=== PATIENT | female | born 1975 | race American Indian/Alaskan Native ===

== ENCOUNTER 2017-05-15 20:20 | Emergency (ER) | payer SELFPAY ==
[2017-05-15 20:35] VITALS: BP 124/83
== END 2017-05-16 05:50 | disposition left against medical advice (07) ==
LOC: ED 20:20
DX: M54.5 Low back pain (principal); M79.1 Myalgia; Z53.21 Procedure and treatment not carried out due to patient leaving prior to being seen by health care provider

== ENCOUNTER 2019-04-19 23:04 | Emergency (ER) | payer OTHER ==
[2019-04-19 23:16] VITALS: BP 97/58
--- NOTE | 2019-04-20 00:15 | XRay Report ---
PROCEDURE: XR SPINE LUMBOSACRAL 2-3V TECHNIQUE: Lumbar spine radiographs, AP, lateral and spot views. HISTORY: slip and fall COMPARISONS: None . FINDINGS: Alignment: Normal . Vertebral body heights/Disk spaces: Mild loss of disc space height at the L4-5 and L5-S1 levels. Sli ght spur formation off the osseous structures. . Fracture(s): None . Facets: Normal . Bone mineralization: Normal . IMPRESSION: There is no evidence of an acute fracture. Mild lumbar spondylosis . This document is electronically signed by Pauly Ponce DO., Apr 20 2019 12:13:38 AM ET
[2019-04-20] MEDS ORDERED: NORCO 5/325 PO STA (02:08)
--- NOTE | 2019-04-20 03:10 | Emergency Department Report ---
ED Back Pain/Injury HPI - General Chief Complaint: Back Pain/Injury Stated Complaint: SLIP AND FALL,BACK PAIN, RT LEG PAIN Time Seen by Provider: 04/20/19 02:06 Source: patient Limitations: No Limitations - History of Present Illness Initial Comments: 43-year-old Afro-[place] female system was department complaining of low back pain after slipping and falling on the floor in the house. She was walking on a hold for didn't see the water was she slipped and fallen backwards landing onto her back causing the problem pain to the right side of her back and occasional shooting pains down her right leg. She reports no loss of bowel or bladder, no saddle paresthesia. She reports no hematuria. No neck consciousness MD Complaint: back pain - Related Data Previous Rx's Medication Instructions Recorded Last Taken Type Ketorolac [Toradol] 10 mg PO Q6H PRN #15 tablet 04/20/19 Unknown Rx methOCARBAMOL [Robaxin] 750 mg PO Q8H PRN #21 tablet 04/20/19 Unknown Rx Allergies Allergy/AdvReac Type Severity Reaction Status Date / Time No Known Allergies Allergy Unverified 05/15/17 20:35 ED Review of Systems ROS: Stated complaint: SLIP AND FALL,BACK PAIN, RT LEG PAIN Other details as noted in HPI Constitutional: denies: chills, fever Eyes: denies: eye pain, eye discharge, vision change ENT: denies: ear pain, throat pain Respiratory: denies: cough, shortness of breath, wheezing Cardiovascular: denies: chest pain, palpitations Endocrine: no symptoms reported Gastrointestinal: denies: abdominal pain, nausea, diarrhea Genitourinary: denies: urgency, dysuria, discharge Musculoskeletal: back pain. denies: joint swelling, arthralgia Skin: denies: rash, lesions Neurological: denies: headache, weakness, paresthesias Psychiatric: denies: anxiety, depression Hematological/Lymphatic: denies: easy bleeding, easy bruising ED Past Medical Hx - Past Medical History Previous Medical History?: No - Surgical History Past Surgical History?: Yes Additional Surgical History: ectopic - Social History Smoking Status: Current Every Day Smoker Substance Use Type: None - Medications Home Medications: Home Medications Medication Instructions Recorded Confirmed Last Taken Type Ketorolac [Toradol] 10 mg PO Q6H PRN #15 tablet 04/20/19 Unknown Rx methOCARBAMOL [Robaxin] 750 mg PO Q8H PRN #21 tablet 04/20/19 Unknown Rx ED Physical Exam - General Limitations: No Limitations General appearance: alert, in no apparent distress - Head Head exam: Present: atraumatic, normocephalic - Eye Eye exam: Present: normal appearance, PERRL, EOMI Pupils: Present: normal accommodation - ENT ENT exam: Present: normal exam, normal orophraynx, mucous membranes moist, TM's normal bilaterally - Neck Neck exam: Present: normal inspection, full ROM - Respiratory Respiratory exam: Present: normal lung sounds bilaterally. Absent: respiratory distress, wheezes, rales, chest wall tenderness, accessory muscle use - Cardiovascular Cardiovascular Exam: Present: regular rate, normal rhythm. Absent: systolic murmur, diastolic murmur, rubs, gallop - GI/Abdominal GI/Abdominal exam: Present: soft, normal bowel sounds - Extremities Exam Extremities exam: Present: normal inspection - Back Exam Back exam: Present: normal inspection - Neurological Exam Neurological exam: Present: alert, oriented X3 - Psychiatric Psychiatric exam: Present: normal affect, normal mood - Skin Skin exam: Present: warm, dry, intact, normal color. Absent: rash ED Course Vital Signs 04/19/19 23:08 Temperature 98.0 F Pulse Rate 71 Respiratory 18 Rate Blood Pressure 97/58 O2 Sat by Pulse 100 Oximetry Critical care attestation.: If time is entered above; I have spent that time in minutes in the direct care of this critically ill patient, excluding procedure time. ED Disposition Clinical Impression: Lower back pain Disposition: DC-01 TO HOME OR SELFCARE Is pt being admited?: No Does the pt Need Aspirin: No Condition: Stable Instructions: Low Back Strain (ED), Back Pain (ED) Prescriptions: methOCARBAMOL [Robaxin] 750 mg PO Q8H PRN #21 tablet PRN Reason: Spasms Ketorolac [Toradol] 10 mg PO Q6H PRN #15 tablet PRN Reason: Pain Referrals: MICK SOLORZANO MD [Primary Care Provider] - 3-5 Days
== END 2019-04-20 04:05 | disposition home or self-care (01) ==
LOC: ED 23:04
DX: M54.5 Low back pain (principal); F17.200 Nicotine dependence, unspecified, uncomplicated
CPT/HCPCS: 72100

== ENCOUNTER 2020-11-05 08:42 | Observation (INO) | payer OTHER ==
[2020-11-05 09:38] LABS: Basophils # (Auto) 0.1 K/mm3 (0.0-0.1); Basophils % (Auto) 0.8 % (0.0-1.8); Eosinophils # (Auto) 0.1 K/mm3 (0.0-0.4); Eosinophils % (Auto) 1.6 % (0.0-4.3); Hemoglobin 13.6 gm/dl (10.1-14.3); Lymphocytes # (Auto) 0.8 K/mm3 (1.2-5.4); Lymphocytes % (Auto) 9.6 % (13.4-35.0); Mean Corpuscular HGB Conc 34 % (30-34); Mean Corpuscular Volume 94 fl (79-97); Monocytes # (Auto) 0.4 K/mm3 (0.0-0.8); Monocytes % (Auto) 4.6 % (0.0-7.3); Platelet Count 206 K/mm3 (140-440); Red Blood Count 4.28 M/mm3 (3.65-5.03); Red Cell Distribution Width 13.8 % (13.2-15.2)
[2020-11-05] MEDS ORDERED: ONDANSETRON 4 MG/2 ML INJ IV ONE (09:43)
[2020-11-05] MEDS ORDERED: MORPHINE 4 MG/1 ML INJ IV ONE ×2 (09:43→10:51)
--- NOTE | 2020-11-05 09:45 | Emergency Department Report ---
ED Abdominal Pain HPI - General Chief Complaint: Abdominal Pain Stated Complaint: VOMITING,ABDOMINAL PAIN Time Seen by Provider: 11/05/20 09:30 Source: patient Mode of arrival: Ambulatory Limitations: No Limitations - History of Present Illness Initial Comments: 45-year-old female presents to the ER today complaint of epigastric pain. Patient states that her pain started last night. She describes a constant sharp pain that radiates into her back. Patient states that she is concerned that may be related to her gallstones. She states that she was diagnosed with gallstones about 2 years ago but never had it removed due to lack of insurance. She states that she has not had any issues with it until last night. She did admit that she had fried pork chops prior to the onset of the pain. She reports nausea and she did vomit once since the pain started last night. He states she is afraid to eat because that might worsen her pain. She denies any fever, chills, bowel changes, chest pain or shortness of breath or any other symptoms at this time. MD Complaint: abdominal pain -: Sudden Location: epigastric Radiation: back Migration to: no migration Severity scale (0 -10): 10 Quality: sharp Consistency: constant Improves With: nothing Worsens With: eating Associated Symptoms: nausea, vomiting - Related Data Previous Rx's Medication Instructions Recorded Last Taken Type Ketorolac [Toradol] 10 mg PO Q6H PRN #15 tablet 04/20/19 Unknown Rx methOCARBAMOL [Robaxin] 750 mg PO Q8H PRN #21 tablet 04/20/19 Unknown Rx Allergies Allergy/AdvReac Type Severity Reaction Status Date / Time No Known Allergies Allergy Unverified 05/15/17 20:35 ED Review of Systems ROS: Stated complaint: VOMITING,ABDOMINAL PAIN Other details as noted in HPI Constitutional: denies: chills, fever Respiratory: denies: cough, shortness of breath, wheezing Cardiovascular: denies: chest pain, palpitations Gastrointestinal: abdominal pain, nausea, vomiting. denies: diarrhea, constipation, hematemesis, melena, hematochezia Genitourinary: denies: urgency, dysuria, discharge Musculoskeletal: denies: back pain, joint swelling, arthralgia Skin: denies: rash, lesions Neurological: denies: headache, weakness, paresthesias ED Past Medical Hx - Past Medical History Previous Medical History?: No - Surgical History Past Surgical History?: Yes Additional Surgical History: ectopic - Social History Smoking Status: Never Smoker Substance Use Type: None - Medications Home Medications: Home Medications Medication Instructions Recorded Confirmed Last Taken Type Ketorolac [Toradol] 10 mg PO Q6H PRN #15 tablet 04/20/19 Unknown Rx methOCARBAMOL [Robaxin] 750 mg PO Q8H PRN #21 tablet 04/20/19 Unknown Rx ED Physical Exam - General Limitations: No Limitations General appearance: alert, anxious, in distress (Moderate pain distress), other (Patient is tearful) - Head Head exam: Present: atraumatic, normocephalic, normal inspection - Respiratory Respiratory exam: Present: normal lung sounds bilaterally. Absent: respiratory distress - Cardiovascular Cardiovascular Exam: Present: regular rate, normal rhythm, normal heart sounds - GI/Abdominal GI/Abdominal exam: Present: soft, tenderness (Moderate epigastric tenderness with some mild guarding). Absent: distended, rebound, rigid - Neurological Exam Neurological exam: Present: alert, oriented X3, CN II-XII intact, normal gait - Psychiatric Psychiatric exam: Present: normal affect, anxious - Skin Skin exam: Present: intact ED Course Vital Signs 11/05/20 11/05/20 11/05/20 11:10 11:12 12:55 Temperature 98.9 F Pulse Rate 86 Respiratory 22 22 18 Rate Blood Pressure 136/90 [Left] O2 Sat by Pulse 99 Oximetry 11/05/20 14:07 Temperature Pulse Rate Respiratory 18 Rate Blood Pressure [Left] O2 Sat by Pulse 98 Oximetry ED Medical Decision Making - Lab Data Result diagrams: 11/05/20 09:25 11/05/20 09:25 - EKG Data -: EKG Interpreted by Al EKG shows normal: sinus rhythm - EKG Data Interpretation: other (No STEMI or ischemic changes, significant dysrhythmia) - Radiology Data Findings [facility] [address] [place] [address] Ultrasound Report Signed Patient: EVAN SCHROEDER MR# : [id number] : 1975 Acct:[id number] Age/Sex: 45 / F ADM Date: 11/05/20 Loc: ED Attending Dr: Ordering Physician: AN BROWN Date of Service: 11/05/20 Procedure(s): US abdomen limited Accession Number(s): [id number] cc: AN BROWN US abdomen limited INDICATION / CLINICAL INFORMATION: Epigastric pain, history of gallstones. COMPARISON: None available. FINDINGS: Hepatic echogenicity is heterogeneous, suggesting fatty infiltration and possibly early cirrhosis. Gallbladder contains numerous stones, and the stage builder indicates a positive Rg's sign. Common duct is slightly dilated, measuring 9.3 cm. I do not see significant intrahepatic biliary dilatation. Pancreas and abdominal aorta are unremarkable. IMPRESSION: 1. Cholelithiasis. Positive Rg's sign suggests cholecystitis. 2. Inhomogeneous hepatic echogenicity, suggesting fatty infiltration and possibly cirrhosis. 3. Extrahepatic common duct is slightly dilated, but I do not see significant intrahepatic biliary dilatation. Signer Name: Ian Llamas MD Signed: 11/05/2020 10:38 AM Workstation Name: [id number] Transcribed By: TM Dictated By: Ian Llamas MD Electronically Authenticated By: Ian Llamas MD Signed Date/Time: 11/05/20 1038 DD/ 1035 TD/TT: - Medical Decision Making 1247 -- Patient reports some improvement of her pain after second round of morphine. She states her pain is 8/10 after 8mg IV morphine. Review case, labs and CT with attending. Consulted general surgeon Dr Davial, given US/CT findings and patient persistent pain, he recommend admitting to hospitalist and he will consult. Zosyn IV started per surgery consult. 1251 -- Discussed case with Hospitalist. He has agreed to admit Discussed lab/ct/US findings with patient. Discussed plan for admission with patient. She expressed understanding and agreed with plan. Critical care attestation.: If time is entered above; I have spent that time in minutes in the direct care of this critically ill patient, excluding procedure time. ED Disposition Clinical Impression: Gallstone, Cholecystitis Disposition: - OP ADMIT IP TO THIS HOSP Is pt being admited?: Yes Does the pt Need Aspirin: No Condition: Stable
[2020-11-05 10:01] LABS: Alanine Aminotransferase 7 units/L (7-56); Albumin 3.5 g/dL (3.9-5); Blood Urea Nitrogen 5 mg/dL (7-17); Calcium 9.4 mg/dL (8.4-10.2); Hemolysis Index 7
[2020-11-05 10:06] LABS: BUN/Creatinine Ratio 7
[2020-11-05 10:11] LABS: Bilirubin,Urine NEG (Negative); Blood,Urine MOD (Negative); Color,Urine Straw (Yellow); Mucus,Urine FEW /HPF; Protein,Urine <15 mg/dL mg/dL (Negative); Urobilinogen,Urine < 2.0 mg/dL (<2.0); WBC,Urine < 1.0 /HPF (0.0-6.0)
--- NOTE | 2020-11-05 10:43 | Ultrasound Report ---
US abdomen limited INDICATION / CLINICAL INFORMATION: Epigastric pain, history of gallstones. COMPARISON: None available. FINDINGS: Hepatic echogenicity is heterogeneous, suggesting fatty infiltration and possibly early cirrhosis. Ga llbladder contains numerous stones, and the operator technician indicates a positive Rg's sign. Common du ct is slightly dilated, measuring 9.3 cm. I do not see significant intrahepatic biliary dilatation. Pancreas and abdominal aorta are unremarkable. IMPRESSION: 1. Cholelithiasis. Positive Rg's sign suggests cholecystitis. 2. Inhomogeneous hepatic echogenicity, suggesting fatty infiltration and possibly cirrhosis. 3. Extrahepatic common duct is slightly dilated, but I do not see significant intrahepatic biliary di latation. Signer Name: Ian Llamas MD Signed: 11/05/2020 10:38 AM Workstation Name: [id number]
[2020-11-05] MEDS ORDERED: FAMOTIDINE 20 MG/2 ML INJ IV ONE (10:51)
[2020-11-05] MEDS ORDERED: KETOROLAC 30 MG/1 ML INJ IV ONE (10:54)
--- NOTE | 2020-11-05 12:27 | Cat Scan Report ---
CT ABDOMEN AND PELVIS WITH IV CONTRAST INDICATION: Severe epigastric and right upper quadrant pain. COMPARISON: Right upper quadrant ultrasound earlier today. TECHNIQUE: All CT scans at this facility use dose modulation, automated exposure control, iterative reconstructi on or weight based dosing, when appropriate, to reduce radiation dose to as low as reasonably achieva ble. FINDINGS: Lung Bases: No significant abnormality. Skeletal System: No acute abnormality. ABDOMEN: Liver: There are mild steatosis. Gallbladder: Gallbladder is distended with punctate stones. Bile Ducts: There is mild intrahepatic and common bile duct dilatation. Pancreas: There is mild pancreatic duct dilatation. There appears to be a patent accessory duct of Sa ntorini. Pancreatic parenchyma is unremarkable. Spleen: No significant abnormality. Adrenals: No significant abnormality. Right Kidney: No significant abnormality. Left Kidney: No significant abnormality. Upper GI tract: No significant abnormality. Lymph Nodes: No significant adenopathy. Aorta: No significant abnormality. Additional Findings: No significant abnormality. PELVIS: Colon: No acute abnormality. Urinary Bladder and Distal Ureters: No significant abnormality. Appendix: No significant abnormality. Lymph Nodes: No significant adenopathy. Additional Findings: Trace free fluid in the cul-de-sac may be physiologic. Right ovarian cysts are n oted. IMPRESSION: 1. Gallbladder is distended with punctate stones. No gallbladder wall thickening or pericholecystic fluid. Given this and the ultrasound findings, acute cholecystitis should be considered. There is mil d biliary dilatation. 2. There appears to be a patent accessory duct of Santorini at the pancreas. No CT evidence of acute pancreatitis. Signer Name: Aditya Long MD Signed: 11/05/2020 12:23 PM Workstation Name: [id number]
[2020-11-05] MEDS ORDERED: PIPERACILLIN/TAZOBACTAM 3.375 3.375 GM/50 ML BAG IV ONE (12:50)
--- NOTE | 2020-11-05 12:53 | History and Physical Report ---
History of Present Illness Chief complaint: My stomach hurts History of present illness: 45 YO Female with Cholelithiasis presents to ED for evaluation. Patient states that she has experienced abdominal pain over the past 2 days with worsening symptoms over the past 10 hours. Patient states that her pain is 10/10, was initially intermittent but has become constant, sharp, epigastric in location, nonradiating, associated with nausea, associated with multiple episodes of vomiting, worsened with eating, relieved with abstinence from ingestion of food. Patient transported to [facility] via private vehicle for further care and evaluation of the aforementioned symptoms. Patient seen and evaluated in the emergency department. All lab and imaging studies reviewed. Patient underwent CT scan of the abdomen and pelvis which revealed acute cholecystitis. Surgery team consulted in ED. Patient placed in observation status and admitted to surgical floor. Patient treated with bowel rest, IV fluid resuscitation therapy, and pain control. Patient is pending surgical intervention. Patient denies fever, chills, chest pain, palpitations, productive cough, skin rash, recent ill contacts, or known exposure to COVID-19. No prior admission for review. All medication listed at time of admission has been reconciled. Past History Past Medical History: other (See HPI) Past Surgical History: bowel surgery Social history: , lives with family. denies: smoking, alcohol abuse, prescription drug abuse Family history: no significant family history (Reviewed) Medications and Allergies Allergies Allergy/AdvReac Type Severity Reaction Status Date / Time No Known Allergies Allergy Unverified 05/15/17 20:35 Home Medications Medication Instructions Recorded Confirmed Last Taken Type Ketorolac [Toradol] 10 mg PO Q6H PRN #15 tablet 04/20/19 Unknown Rx methOCARBAMOL [Robaxin] 750 mg PO Q8H PRN #21 tablet 04/20/19 Unknown Rx Active Meds: Active Medications Piperacillin Sod/Tazobactam Sod (Zosyn/Ns 3.375gm/50ml) 3.375 gm in 50 mls @ 100 mls/hr IV ONCE ONE; Protocol Stop: 11/05/20 13:19 Review of Systems Constitutional: no weight loss, no weight gain, no fever, no sweats Ears, nose, mouth and throat: no ear pain, no tinnitis, no nose pain Breasts: no change in shape, no mass Cardiovascular: no chest pain, no rapid/irregular heart beat Respiratory: no cough, no cough with sputum, no excessive sputum, no shortness of breath Gastrointestinal: abdominal pain, nausea, vomiting, no diarrhea, no constipatio n, no coffee ground emesis, no BRBPR, no melena, no hematochezia Genitourinary Female: no pelvic pain, no flank pain, no dysuria, no urinary frequency Rectal: no pain, no incontinence, no bleeding Musculoskeletal: no neck stiffness, no low back pain Integumentary: no rash, no pruritis, no redness, no sores, no wounds Neurological: no paralysis, no weakness, no parathesias, no numbness, no seizures Psychiatric: no anxiety, no memory loss, no sleep disturbances, no insomnia, no hypersomnia, no change in appetite, no change in libido Endocrine: no cold intolerance, no heat intolerance, no excessive thirst, no polydipsia Hematologic/Lymphatic: no easy bruising, no easy bleeding, no lymphadenopathy Allergic/Immunologic: no urticaria, no allergic rhinitis, no persistent infections Exam - Constitutional Vitals: Temp Pulse Resp BP Pulse Ox 22 11/05/20 11:12 General appearance: Present: mild distress - EENT Eyes: Present: PERRL ENT: hearing intact, clear oral mucosa - Neck Neck: Present: supple, normal ROM - Respiratory Respiratory effort: normal Respiratory: bilateral: CTA - Cardiovascular Heart Sounds: Present: S1 & S2. Absent: rub, click - Extremities Extremities: pulses symmetrical, No edema Peripheral Pulses: within normal limits - Abdominal General gastrointestinal: Present: soft, tender, non-distended, normal bowel sounds. Absent: hepatomegaly, mass, hernia Localized gastrointestinal: tender: RUQ Female genitourinary: Present: normal - Integumentary Integumentary: Present: clear, warm, dry - Musculoskeletal Musculoskeletal: gait normal, strength equal bilaterally - Psychiatric Psychiatric: appropriate mood/affect, intact judgment & insight - Neurologic Neurologic: CNII-XII intact, moves all extremities HEART Score - HEART Score Troponin: Troponin T < 0.010 ng/mL (0.00-0.029) 11/05/20 09:52 Results - Labs CBC & Chem 7: 11/05/20 09:25 11/05/20 09:25 Labs: Abnormal lab results 11/05/20 11/05/20 11/05/20 Range/Units 09:22 09:25 09:25 Lymph % (Auto) 9.6 L (13.4-35.0) % Lymph # (Auto) 0.8 L (1.2-5.4) K/mm3 Seg Neutrophils % 83.4 H (40.0-70.0) % BUN 5 L (7-17) mg/dL Glucose 101 H (65-100) mg/dL Total Protein 6.2 L (6.3-8.2) g/dL Albumin 3.5 L (3.9-5) g/dL Urine pH 8.0 H (5.0-7.0) Assessment and Plan - Patient Problems (1) Acute cholecystitis Current Visit: Yes Status: Acute Plan to address problem: CT scan abdomen and pelvis, CBC, CMP, bowel rest, IV fluid resuscitation therapy, IV antibiotic therapy, surgery team consulted in ED. Patient is pending surgical intervention as per surgical team. (2) Abdominal pain Current Visit: Yes Status: Acute Qualifiers: Abdominal location: right upper quadrant Qualified Code(s): R10.11 - Right upper quadrant pain Plan to address problem: Bowel rest, IV fluid resuscitation therapy, pain control, serial abdominal exam. (3) DVT prophylaxis Current Visit: Yes Status: Acute Plan to address problem: SCD to bilateral lower extremities while in bed, patient is ambulatory
[2020-11-05] MEDS ORDERED: ALBUTEROL 2.5 MG/3 ML NEBU IH PRN (13:00)
[2020-11-05] MEDS ORDERED: ONDANSETRON 4 MG/2 ML INJ IV PRN (13:00)
[2020-11-05] MEDS ORDERED: ACETAMINOPHEN 325 MG TAB PO PRN (13:00)
[2020-11-05] MEDS: MORPHINE 2 MG/1 ML INJ IV PRN ×2 (13:58→19:56)
[2020-11-05] MEDS: MORPHINE 4 MG/1 ML INJ IV PRN ×3 (16:07→21:12)
--- NOTE | 2020-11-05 17:36 | Consultation ---
History of Present Illness Consult date: 11/05/20 Reason for consult: abdominal pain - History of present illness History of present illness: 45 yo female with onset of RUQ pain, nausea and vomiting which began yesterday after eating fried pork chops. No fever, chills, hematemesis, melena, hematochezia or change in bowel habits. Past History Past Medical History: other (See HPI) Past Surgical History: bowel surgery Social history: , lives with family. denies: smoking, alcohol abuse, prescription drug abuse Family history: no significant family history (Reviewed) Medications and Allergies Allergies Allergy/AdvReac Type Severity Reaction Status Date / Time No Known Allergies Allergy Unverified 05/15/17 20:35 Home Medications Medication Instructions Recorded Confirmed Last Taken Type No Known Home Medications [No 11/05/20 11/05/20 Unknown History Reported Home Medications] Active Meds: Active Medications Acetaminophen (Acetaminophen 325 Mg Tab) 650 mg PO Q4H PRN PRN Reason: Pain MILD(1-3)/Fever >100.5/COSTELLO Albuterol (Albuterol 2.5 Mg/3 Ml Nebu) 2.5 mg IH Q4HRT PRN PRN Reason: Shortness Of Breath Sodium Chloride (Nacl 0.9% 1000 Ml) 1,000 mls @ 125 mls/hr IV DIRECT LUCRECIA Piperacillin Sod/Tazobactam Sod (Zosyn/Ns 3.375gm/50ml) 3.375 gm in 50 mls @ 100 mls/hr IV Q8H LUCRECIA; Protocol Morphine Sulfate (Morphine 2 Mg/1 Ml Inj) 1 mg IV Q4H PRN PRN Reason: Pain, Moderate (4-6) Last Admin: 11/05/20 13:58 Dose: 1 mg Documented by: Morphine Sulfate (Morphine 4 Mg/1 Ml Inj) 2 mg IV Q4H PRN PRN Reason: Pain , Severe (7-10) Last Admin: 11/05/20 16:07 Dose: 2 mg Documented by: Ondansetron HCl (Ondansetron 4 Mg/2 Ml Inj) 4 mg IV Q8H PRN PRN Reason: Nausea And Vomiting Sodium Chloride (Sodium Chloride 0.9% 10 Ml Flush Syringe) 10 ml IV BID LUCRECIA Sodium Chloride (Sodium Chloride 0.9% 10 Ml Flush Syringe) 10 ml IV PRN PRN PRN Reason: LINE FLUSH Review of Systems All systems: negative (none) Exam Vital Signs Resp 22 11/05/20 11:10 - General physical appearance Positive: well developed, well nourished, no distress - Eyes Positive: PERRL, normal occular movement - ENT Positive: normal pinna, normal nares, normal mucosa, no hearing loss, no congestion - Neck Positive: no masses, no bruits, trachea midline, no venous distension - Respiratory Positive: normal expansion, normal respiratory effort, clear to auscultation - Cardiovascular Rhythm: regular Heart Sounds: Present: S1 & S2. Absent: rub, click - Extremities Extremities: no ischemia, pulses symmetrical, No edema - Breasts Breasts: normal, no mass, no skin changes, other - Abdomen Abdomen: Present: soft, bowel sounds normal, other (Moderate tenderness in the RUQ without rebound or guarding) Hernia: none - Genitourinary Male Genitourinary: normal Female Genitourinary: normal - Integumentary no rash, no growths, no abnormal pigmentation - Neurologic Neurologic: alert and oriented to time, place and person, motor strength and sensation are grossly intact - Musculoskeletal normal gait, normal posture - Psychiatric Psychiatric: appropriate mood/affect, intact judgment & insight Results - Labs 11/05/20 09:25 11/05/20 09:25 Abnormal lab results 11/05/20 11/05/20 11/05/20 Range/Units 09:22 09:25 09:25 Lymph % (Auto) 9.6 L (13.4-35.0) % Lymph # (Auto) 0.8 L (1.2-5.4) K/mm3 Seg Neutrophils % 83.4 H (40.0-70.0) % BUN 5 L (7-17) mg/dL Glucose 101 H (65-100) mg/dL Total Protein 6.2 L (6.3-8.2) g/dL Albumin 3.5 L (3.9-5) g/dL Urine pH 8.0 H (5.0-7.0) Diabetes panel 11/05/20 Range/Units 09:25 Sodium 140 (137-145) mmol/L Potassium 4.2 (3.6-5.0) mmol/L Chloride 106.2 (98-107) mmol/L Carbon Dioxide 29 (22-30) mmol/L BUN 5 L (7-17) mg/dL Creatinine 0.7 (0.6-1.2) mg/dL Glucose 101 H (65-100) mg/dL Calcium 9.4 (8.4-10.2) mg/dL AST 13 (5-40) units/L ALT 7 (7-56) units/L Alkaline Phosphatase 67 (35-129) units/L Total Protein 6.2 L (6.3-8.2) g/dL Albumin 3.5 L (3.9-5) g/dL Calcium panel 11/05/20 Range/Units 09:25 Calcium 9.4 (8.4-10.2) mg/dL Albumin 3.5 L (3.9-5) g/dL Pituitary panel 11/05/20 Range/Units 09:25 Sodium 140 (137-145) mmol/L Potassium 4.2 (3.6-5.0) mmol/L Chloride 106.2 (98-107) mmol/L Carbon Dioxide 29 (22-30) mmol/L BUN 5 L (7-17) mg/dL Creatinine 0.7 (0.6-1.2) mg/dL Glucose 101 H (65-100) mg/dL Calcium 9.4 (8.4-10.2) mg/dL Adrenal panel 11/05/20 Range/Units 09:25 Sodium 140 (137-145) mmol/L Potassium 4.2 (3.6-5.0) mmol/L Chloride 106.2 (98-107) mmol/L Carbon Dioxide 29 (22-30) mmol/L BUN 5 L (7-17) mg/dL Creatinine 0.7 (0.6-1.2) mg/dL Glucose 101 H (65-100) mg/dL Calcium 9.4 (8.4-10.2) mg/dL Total Bilirubin 0.20 (0.1-1.2) mg/dL AST 13 (5-40) units/L ALT 7 (7-56) units/L Alkaline Phosphatase 67 (35-129) units/L Total Protein 6.2 L (6.3-8.2) g/dL Albumin 3.5 L (3.9-5) g/dL - Imaging CT scan - abdomen: report reviewed CT scan - pelvis: report reviewed US - abdomen: report reviewed Assessment and Plan - Patient Problems (1) Acute cholecystitis Current Visit: Yes Status: Acute Plan to address problem: 1) Bowel rest 2) IV Zosyn 3) Lap al tomorrow 4) SCD 5) Check coags (? cirrhosis on CT abd)
[2020-11-05] MEDS: PIPERACILLIN/TAZOBACTAM 3.375 3.375 GM/50 ML BAG IV SCH (17:54)
[2020-11-05 20:05] LABS: INR 0.99 (0.87-1.13)
[2020-11-05 20:06] LABS: Partial Thromboplastin Time 30.5 Sec. (24.2-36.6)
[2020-11-05] MEDS: SODIUM CHLORIDE 0.9% 1000 ML 1,000 ML IV SCH (22:23)
[2020-11-05] MEDS ORDERED: HYDROmorphone 1 MG/1 ML INJ IV ONE (23:30)
[2020-11-06] MEDS: MORPHINE 4 MG/1 ML INJ IV PRN ×3 (01:33→15:53)
[2020-11-06] MEDS: PIPERACILLIN/TAZOBACTAM 3.375 3.375 GM/50 ML BAG IV SCH ×4 (01:58→18:27)
[2020-11-06] MEDS ORDERED: HYDROmorphone 1 MG/1 ML INJ IV ONE (04:20)
[2020-11-06] MEDS: SODIUM CHLORIDE 0.9% 1000 ML 1,000 ML IV SCH ×2 (07:07→18:29)
--- NOTE | 2020-11-06 07:18 | Progress Note ---
Assessment and Plan Assessment and plan: Acute cholecystitis -General surgery consulted and will do laparoscopic cholecystectomy today -Pain control -Continue with IV morphine Disposition; per surgical team History Interval history: Patient was seen and evaluated this morning Patient is complaining abdominal pain, requesting her pain medicine to be given early. Hospitalist Physical - Physical exam Narrative exam: Not in cardiopulmonary distress. The patient appeared well nourished and normally developed. Vital signs as documented. Head exam is unremarkable. No scleral icterus . Neck is without jugular venous distension, thyromegaly, or carotid bruits. Lungs are clear to auscultation. Cardiac exam reveals regular rate and Rhythm. Abdominal exam reveals epigastric tenderness. Extremities are nonedematous and both femoral and pedal pulses are normal. VECTOR CONTROL ASSISTANT: Alert and oriented 3. No focal weakness. - Constitutional Vitals: Temp Pulse Resp BP Pulse Ox 98.7 F 60 18 105/65 98 11/06/20 04:03 11/06/20 04:03 11/06/20 04:03 11/06/20 04:03 11/06/20 04:03 General appearance: Present: mild distress HEART Score - HEART Score Troponin: Troponin T < 0.010 ng/mL (0.00-0.029) 11/05/20 09:52 Results - Labs CBC & Chem 7: 11/05/20 09:25 11/05/20 09:25 Labs: Laboratory Last Values WBC 8.0 K/mm3 (4.5-11.0) 11/05/20 09:25 RBC 4.28 M/mm3 (3.65-5.03) 11/05/20 09:25 Hgb 13.6 gm/dl (10.1-14.3) 11/05/20 09:25 Hct 40.0 % (30.3-42.9) 11/05/20 09:25 MCV 94 fl (79-97) 11/05/20 09:25 MCH 32 pg (28-32) 11/05/20 09:25 MCHC 34 % (30-34) 11/05/20 09:25 RDW 13.8 % (13.2-15.2) 11/05/20 09:25 Plt Count 206 K/mm3 (140-440) 11/05/20 09:25 Lymph % (Auto) 9.6 % (13.4-35.0) L 11/05/20 09:25 [place] % (Auto) 4.6 % (0.0-7.3) 11/05/20 09:25 Eos % (Auto) 1.6 % (0.0-4.3) 11/05/20 09:25 Baso % (Auto) 0.8 % (0.0-1.8) 11/05/20 09:25 Lymph # (Auto) 0.8 K/mm3 (1.2-5.4) L 11/05/20 09:25 [place] # (Auto) 0.4 K/mm3 (0.0-0.8) 11/05/20 09:25 Eos # (Auto) 0.1 K/mm3 (0.0-0.4) 11/05/20 09:25 Baso # (Auto) 0.1 K/mm3 (0.0-0.1) 11/05/20 09:25 Seg Neutrophils % 83.4 % (40.0-70.0) H 11/05/20 09:25 Seg Neutrophils # 6.6 K/mm3 (1.8-7.7) 11/05/20 09:25 PT 12.9 Sec. (12.2-14.9) 11/05/20 18:37 INR 0.99 (0.87-1.13) 11/05/20 18:37 APTT 30.5 Sec. (24.2-36.6) 11/05/20 18:37 Sodium 140 mmol/L (137-145) 11/05/20 09:25 Potassium 4.2 mmol/L (3.6-5.0) 11/05/20 09:25 Chloride 106.2 mmol/L (98-107) 11/05/20 09:25 Carbon Dioxide 29 mmol/L (22-30) 11/05/20 09:25 Anion Gap 9 mmol/L 11/05/20 09:25 BUN 5 mg/dL (7-17) L 11/05/20 09:25 Creatinine 0.7 mg/dL (0.6-1.2) 11/05/20 09:25 Estimated GFR > 60 ml/min 11/05/20 09:25 BUN/Creatinine Ratio 7 % 11/05/20 09:25 Glucose 101 mg/dL (65-100) H 11/05/20 09:25 Calcium 9.4 mg/dL (8.4-10.2) 11/05/20 09:25 Total Bilirubin 0.20 mg/dL (0.1-1.2) 11/05/20 09:25 AST 13 units/L (5-40) 11/05/20 09:25 ALT 7 units/L (7-56) 11/05/20 09:25 Alkaline Phosphatase 67 units/L (35-129) 11/05/20 09:25 Troponin T < 0.010 ng/mL (0.00-0.029) 11/05/20 09:52 Total Protein 6.2 g/dL (6.3-8.2) L 11/05/20 09:25 Albumin 3.5 g/dL (3.9-5) L 11/05/20 09:25 Albumin/Globulin Ratio 1.3 % 11/05/20 09:25 Lipase 14 units/L (13-60) 11/05/20 09:52 HCG, Qual Negative (Negative) 11/05/20 09:52 Urine Color Straw (Yellow) 11/05/20 09:22 Urine Turbidity Clear (Clear) 11/05/20 09:22 Urine pH 8.0 (5.0-7.0) H 11/05/20 09:22 Ur Specific [place] 1.009 (1.003-1.030) 11/05/20 09:22 Urine Protein <15 mg/dl mg/dL (Negative) 11/05/20 09:22 Urine Glucose (UA) Neg mg/dL (Negative) 11/05/20 09:22 Urine Ketones Neg mg/dL (Negative) 11/05/20 09:22 Urine Blood Mod (Negative) 11/05/20 09:22 Urine Nitrite Neg (Negative) 11/05/20 09:22 Urine Bilirubin Neg (Negative) 11/05/20 09:22 Urine Urobilinogen < 2.0 mg/dL (<2.0) 11/05/20 09:22 Ur Leukocyte Esterase Neg (Negative) 11/05/20 09:22 Urine WBC (Auto) < 1.0 /HPF (0.0-6.0) 11/05/20 09:22 Urine RBC (Auto) 12.0 /HPF (0.0-6.0) 11/05/20 09:22 U Epithel Cells (Auto) 5.0 /HPF (0-13.0) 11/05/20 09:22 Urine Mucus Few /HPF 11/05/20 09:22 Echevarria/IV: Voiding Method Toilet IV Catheter Type [Left Peripheral IV Antecubital] Active Medications - Current Medications Current Medications: Generic Name Dose Route Start Last Admin Trade Name Freq PRN Reason Stop Dose Admin Acetaminophen 650 mg 11/05/20 13:00 Acetaminophen 325 Mg Tab PO Q4H PRN Pain MILD(1-3)/Fever >100.5/COSTELLO Albuterol 2.5 mg 11/05/20 13:00 Albuterol 2.5 Mg/3 Ml Nebu IH Q4HRT PRN Shortness Of Breath Sodium Chloride 1,000 mls @ 125 mls/hr 11/05/20 13:00 11/06/20 07:07 Nacl 0.9% 1000 Ml IV 125 mls/hr DIRECT LUCRECIA Administration Piperacillin Sod/Tazobactam Sod 3.375 gm in 50 mls @ 100 mls/hr 11/06/20 02:00 11/06/20 02:03 Zosyn/Ns 3.375gm/50ml IV 100 mls/hr Q8H LUCRECIA Administration Protocol Morphine Sulfate 1 mg 11/05/20 13:00 11/05/20 19:56 Morphine 2 Mg/1 Ml Inj IV 1 mg Q4H PRN Administration Pain, Moderate (4-6) Morphine Sulfate 2 mg 11/05/20 12:51 11/06/20 07:08 Morphine 4 Mg/1 Ml Inj IV 2 mg Q4H PRN Administration Pain , Severe (7-10) Ondansetron HCl 4 mg 11/05/20 13:00 Ondansetron 4 Mg/2 Ml Inj IV Q8H PRN Nausea And Vomiting Sodium Chloride 10 ml 11/05/20 22:00 11/05/20 23:13 Sodium Chloride 0.9% 10 Ml Flush Syringe IV 10 ml BID LUCRECIA Administration Sodium Chloride 10 ml 11/05/20 13:00 Sodium Chloride 0.9% 10 Ml Flush Syringe IV PRN PRN LINE FLUSH
[2020-11-06] MEDS ORDERED: HYDROmorphone 1 MG/1 ML INJ IV PRN (10:03)
[2020-11-06] MEDS ORDERED: ONDANSETRON 4 MG/2 ML INJ IV PRN (10:03)
--- NOTE | 2020-11-06 10:04 | Anesthesia Consultation ---
Anesthesia Consult and Med Hx - Airway Anesthetic Teeth Evaluation: Edentulous ROM Head & Neck: Adequate Mental/Hyoid Distance: Adequate Mallampati Class: Class II Intubation Access Assessment: Probably Good - Pulmonary Exam CTA: Yes - Cardiac Exam Cardiac Exam: RRR - Pre-Operative Health Status ASA Pre-Surgery Classification: ASA2 Proposed Anesthetic Plan: General - Pulmonary Hx Smoking: Yes Hx Respiratory Symptoms: No - Cardiovascular System Hx Hypertension: No Hx Heart Attack/AMI: No - Central Nervous System CVA: No - Endocrine Hx Renal Disease: No Hx Liver Disease: No (CT findings of fatty infiltration vs early cirrhosis, LFTs/coags normal) Hx Insulin Dependent Diabetes: No Hx Non-Insulin Dependent Diabetes: No Hx Thyroid Disease: No - Hematic Hx Anemia: No - Other Systems Hx Obesity: No - Additional Comments Anesthesia Medical History Comments: No hx anesthetic complications. Acute cholecystitis scheduled for lap al.
[2020-11-06] MEDS ORDERED: propofoL 200 MG/20 ML VIAL IV ONE (10:05)
[2020-11-06] MEDS ORDERED: LIDOCAINE MPF (2%) 20 MG/1 ML VIAL 5 ML ONE (10:06)
[2020-11-06] MEDS ORDERED: LACTATED RINGERS 1,000 ML IV SCH (10:15)
[2020-11-06] MEDS ORDERED: BUPIVACAINE-EPINEPHRINE/PF 0.5%-1:200,000 (30 ML) VIAL INFILTRATI ONE ×2 (10:36→11:04)
[2020-11-06] MEDS ORDERED: ROCURONIUM 50 MG/5 ML INJ IV ONE (10:44)
[2020-11-06] MEDS ORDERED: dexAMETHasone 20 MG/5 ML VIAL ONE (10:44)
[2020-11-06] MEDS ORDERED: PHENYLEPHRINE/NS 1,000 MCG/10 ML SYRINGE (OR USE) IV ONE (10:45)
--- NOTE | 2020-11-06 10:53 | Anesthesia Day of Surgery ---
Anesthesia Day of Surgery - Day of Surgery Patient Examined: Yes Patient H&P Reviewed: Yes Patient is NPO: Yes
[2020-11-06] MEDS ORDERED: SODIUM CHLORIDE 0.9% IRRIG SOLN 2000 ML IR ONE (11:02)
[2020-11-06] MEDS ORDERED: SODIUM CHLORIDE 0.9% IRR 1,000 ML BOTTLE IR ONE (11:03)
[2020-11-06] MEDS ORDERED: SODIUM CHLORIDE 0.9% 1000 ML 1,000 ML ONE (11:31)
[2020-11-06] MEDS ORDERED: NEOSTIGMINE 10MG/10 ML INJ MDV ONE (11:47)
[2020-11-06] MEDS ORDERED: GLYCOPYRROLATE 0.4 MG/2 ML INJ ONE (11:47)
[2020-11-06] MEDS ORDERED: ONDANSETRON 4 MG/2 ML INJ ONE (11:47)
--- NOTE | 2020-11-06 12:12 | Procedure Note ---
Date of procedure: 11/06/20 Pre-op diagnosis: Acute cholecystitis Post-op diagnosis: same Procedure: Laparoscopic cholecystectomy Description of procedure: Findings: Edematous gallbladder filled with stones Anesthesia: JATINDER Surgeon: EVE MARTINS Estimated blood loss: minimal Pathology: list (gallbladder and gallstones) Specimen disposition: to lab Condition: stable Disposition: PACU (Pt can be discharged from my perspective.)
--- NOTE | 2020-11-06 12:51 | Post Anesthesia Evaluation ---
- Post Anesthesia Evaluation Patient Participated: Yes Airway Patent: Yes Stable Respiratory Function: Yes Nausea/Vomiting: No Temp > 96.8F: Yes Pain Manageable: Yes Adequeate Hydration: Yes Anesthesia Complications: No
[2020-11-06] MEDS: oxyCODONE /ACETAMINOPHEN 5-325MG TAB PO PRN (18:27)
[2020-11-07] MEDS: oxyCODONE /ACETAMINOPHEN 5-325MG TAB PO PRN ×2 (01:30→12:11)
[2020-11-07] MEDS: PIPERACILLIN/TAZOBACTAM 3.375 3.375 GM/50 ML BAG IV SCH ×2 (02:12→09:18)
[2020-11-07] MEDS ORDERED: ALPRAZolam 0.5 MG TAB PO ONE (04:09)
[2020-11-07] MEDS: SODIUM CHLORIDE 0.9% 1000 ML 1,000 ML IV SCH (04:43)
[2020-11-07 08:21] LABS: Alanine Aminotransferase 7 units/L (7-56); Albumin 2.5 g/dL (3.9-5); Blood Urea Nitrogen 6 mg/dL (7-17); Calcium 8.1 mg/dL (8.4-10.2); Hemolysis Index 6
[2020-11-07 08:26] LABS: BUN/Creatinine Ratio 9
[2020-11-07 12:36] VITALS: BP 98/64
--- NOTE | 2020-11-07 15:16 | Discharge Summary ---
Providers - Providers Date of Admission: 11/05/20 12:51 Date of discharge: 11/07/20 Attending physician: MARLENE ROGERS Primary care physician: SALES FORECAST ANALYST Hospitalization Condition: Stable Procedures: Date of procedure: 11/06/20 Pre-op diagnosis: Acute cholecystitis Post-op diagnosis: same Procedure: Laparoscopic cholecystectomy Description of procedure: Findings: Edematous gallbladder filled with stones Anesthesia: GETA Surgeon: EVE MARTINS Estimated blood loss: minimal Pathology: list (gallbladder and gallstones) Specimen disposition: to lab Condition: stable Hospital course: Assessment and Plan Assessment and plan: Acute cholecystitis r Postop patient doing well Patient to be discharged today as per surgery Patient to be on clear liquids for today and advance diet as tolerated from tomorrow Patient being discharged on p.o. Levaquin and Ultram Interval history: Patient is doing well after the surgery Disposition: TO HOME OR SELFCARE - Discharge Diagnoses (1) Acute cholecystitis Status: Acute Comment: S/p cholecystectomy Core Measure Documentation - Palliative Care Palliative Care/ Comfort Measures: Not Applicable - Core Measures Any of the following diagnoses?: none Exam - Constitutional Vitals: Temp Pulse Resp BP Pulse Ox 98.5 F 53 L 20 98/64 100 11/07/20 12:20 11/07/20 12:20 11/07/20 12:20 11/07/20 12:20 11/07/20 12:20 General appearance: Present: no acute distress, well-nourished - EENT Eyes: Present: PERRL ENT: hearing intact, clear oral mucosa - Neck Neck: Present: supple, normal ROM - Respiratory Respiratory effort: normal Respiratory: bilateral: CTA - Cardiovascular Heart rate: 78 Rhythm: regular Heart Sounds: Present: S1 & S2. Absent: rub, click - Extremities Extremities: no ischemia, pulses symmetrical, No edema Peripheral Pulses: within normal limits - Abdominal General gastrointestinal: Present: soft, non-tender, non-distended, normal bowel sounds Female genitourinary: Present: normal - Integumentary Integumentary: Present: clear, warm, dry - Musculoskeletal Musculoskeletal: gait normal, strength equal bilaterally - Psychiatric Psychiatric: appropriate mood/affect, intact judgment & insight - Neurologic Neurologic: CNII-XII intact, moves all extremities - Allied Health Allied health notes reviewed: nursing, case management Plan Activity: no restrictions Diet: advance as tolerated Follow up with: PRIMARY CAREMD [Primary Care Provider] - 7 Days EVE MARTINS MD [Staff Physician] - 7 Days
== END 2020-11-07 17:30 | disposition home or self-care (01) ==
LOC: ED 08:42 → 3A 12:51
PROVIDERS: ADMIT Internal Medicine; ATTEND Internal Medicine
DX: K81.0 Acute cholecystitis (principal); Z98.890 Other specified postprocedural states; Z79.899 Other long term (current) drug therapy
CPT/HCPCS: 36415; 47562; 74177; 76705; 80053; 81001; 83690; 84484; 84703; 85025; 85610; 85730; 88304; 93005; 96361; 96365; 96366; 96375; 96376; 99285; A4217; G0378; J1100; J1170; J1885; J2270; J2370; J2405; J2543; J2704; J2710; J7030; Q9967

== ENCOUNTER 2021-02-23 07:42 | Emergency (ER) | payer SELFPAY ==
[2021-02-23 08:02] VITALS: BP 103/62
[2021-02-23 08:30] LABS: Bacteria,Urine 1+ /HPF (Negative); Bilirubin,Urine NEG (Negative); Blood,Urine LG (Negative); Color,Urine Yellow (Yellow); Mucus,Urine FEW /HPF; Protein,Urine <15 mg/dL mg/dL (Negative); Urobilinogen,Urine < 2.0 mg/dL (<2.0)
[2021-02-23 08:31] LABS: HCG Qualitative,Urine Negative (Negative)
[2021-02-23 08:45] LABS: Basophils # (Auto) 0.1 K/mm3 (0.0-0.1); Basophils % (Auto) 0.7 % (0.0-1.8); Eosinophils # (Auto) 0.2 K/mm3 (0.0-0.4); Eosinophils % (Auto) 2.5 % (0.0-4.3); Hematocrit 37.5 % (30.3-42.9); Hemoglobin 12.9 gm/dl (10.1-14.3); Lymphocytes # (Auto) 0.3 K/mm3 (1.2-5.4); Lymphocytes % (Auto) 2.9 % (13.4-35.0); Mean Corpuscular HGB Conc 34 % (30-34); Mean Corpuscular Volume 92 fl (79-97); Monocytes # (Auto) 0.4 K/mm3 (0.0-0.8); Monocytes % (Auto) 4.3 % (0.0-7.3); Platelet Count 175 K/mm3 (140-440); Red Blood Count 4.08 M/mm3 (3.65-5.03); Red Cell Distribution Width 13.7 % (13.2-15.2)
[2021-02-23 09:07] LABS: Alanine Aminotransferase 16 units/L (7-56); Albumin 3.3 g/dL (3.9-5); BUN/Creatinine Ratio 9; Blood Urea Nitrogen 7 mg/dL (7-17); Calcium 8.6 mg/dL (8.4-10.2); Hemolysis Index 2
--- NOTE | 2021-02-23 09:26 | Emergency Department Report ---
ED Abdominal Pain HPI - General Chief Complaint: Abdominal Pain Stated Complaint: ABD PAIN PUI?: No Time Seen by Provider: 02/23/21 08:57 Source: patient Mode of arrival: Ambulatory Limitations: No Limitations - History of Present Illness Initial Comments: Ms. Ross is a 45-year-old -[place] female that comes to the emergency room today complaining of left lower quadrant pain. She states it radiates to the right side. She states that she went to [place] yesterday and got a CT scan but they have messed up with her before. She goes on to describe that she was seen there and then came here and had to go to emergent surgery for her gallbladder. So she comes to us today for evaluation. She is unable to tell me what they saw on the CT scan. Patient is ambulatory to [facility]. She has no nausea vomiting or diarrhea. She moved her bowels yesterday. Patient denies bloody stools. She states that she has never had a colonoscopy. She does not know when her last menstrual cycle was. Patient is mother and father alive and well. Vital signs are stable and patient is [id number] on arrival to [facility]. Patient states that they sent her home with antibiotics yesterday she cannot tell me why she is on them or what the name of the antibiotic is.. Complaint: abdominal pain -: Gradual, days(s) Worsens With: nothing Associated Symptoms: denies other symptoms - Related Data Previous Rx's Medication Instructions Recorded Last Taken Type levoFLOXacin [Levaquin] 750 mg PO QDAY #7 tablet 11/07/20 Unknown Rx traMADoL [Ultram 50 MG tab] 50 mg PO Q6HR PRN #20 tablet 11/07/20 Unknown Rx Ibuprofen [Motrin] 800 mg PO Q8HR PRN #30 tablet 02/23/21 Unknown Rx Allergies Allergy/AdvReac Type Severity Reaction Status Date / Time No Known Allergies Allergy Unverified 05/15/17 20:35 ED Review of Systems ROS: Stated complaint: ABD PAIN Other details as noted in HPI Comment: All other systems reviewed and negative ED Past Medical Hx - Past Medical History Previous Medical History?: Yes Hx Hypertension: No Hx Heart Attack/AMI: No Hx Liver Disease: No (CT findings of fatty infiltration vs early cirrhosis, LFTs/coags normal) Hx Renal Disease: No - Surgical History Past Surgical History?: Yes Additional Surgical History: ectopic - Family History Family history: no significant - Social History Smoking Status: Current Every Day Smoker Substance Use Type: None - Medications Home Medications: Home Medications Medication Instructions Recorded Confirmed Last Taken Type levoFLOXacin [Levaquin] 750 mg PO QDAY #7 tablet 11/07/20 Unknown Rx traMADoL [Ultram 50 MG tab] 50 mg PO Q6HR PRN #20 tablet 11/07/20 Unknown Rx Ibuprofen [Motrin] 800 mg PO Q8HR PRN #30 tablet 02/23/21 Unknown Rx ED Physical Exam - General Limitations: No Limitations General appearance: alert, in no apparent distress - Head Head exam: Present: atraumatic, normocephalic - Eye Eye exam: Present: normal appearance - ENT ENT exam: Present: mucous membranes moist - Neck Neck exam: Present: normal inspection - Respiratory Respiratory exam: Present: normal lung sounds bilaterally. Absent: respiratory distress - Cardiovascular Cardiovascular Exam: Present: regular rate, normal rhythm. Absent: systolic murmur, diastolic murmur, rubs, gallop - GI/Abdominal GI/Abdominal exam: Present: soft, tenderness, normal bowel sounds - Extremities Exam Extremities exam: Present: normal inspection - Back Exam Back exam: Present: normal inspection - Neurological Exam Neurological exam: Present: alert, oriented X3 - Psychiatric Psychiatric exam: Present: normal affect, normal mood - Skin Skin exam: Present: warm, dry, intact, normal color. Absent: rash ED Course Vital Signs 02/23/21 07:59 Temperature 99.4 F Pulse Rate 90 Respiratory 18 Rate Blood Pressure 103/62 O2 Sat by Pulse 98 Oximetry ED Medical Decision Making - Lab Data Result diagrams: 02/23/21 08:18 02/23/21 08:18 - Radiology Data Radiology results: report reviewed, image reviewed - Medical Decision Making Labs 02/23/21 02/23/21 02/23/21 08:18 08:18 Unknown WBC 9.3 RBC 4.08 Hgb 12.9 Hct 37.5 MCV 92 MCH 32 MCHC 34 RDW 13.7 Plt Count 175 Lymph % (Auto) 2.9 L [place] % (Auto) 4.3 Eos % (Auto) 2.5 Baso % (Auto) 0.7 Lymph # (Auto) 0.3 L [place] # (Auto) 0.4 Eos # (Auto) 0.2 Baso # (Auto) 0.1 Seg Neutrophils % 89.6 H Seg Neutrophils # 8.3 H Sodium 133 L Potassium 3.3 L Chloride 102.4 Carbon Dioxide 22 Anion Gap 12 BUN 7 Creatinine 0.8 Estimated GFR > 60 BUN/Creatinine Ratio 9 Glucose 102 H Calcium 8.6 Total Bilirubin 0.20 AST 23 ALT 16 Alkaline Phosphatase 89 Total Protein 6.2 L Albumin 3.3 L Albumin/Globulin Ratio 1.1 Urine Color Yellow Urine Turbidity Clear Urine pH 5.0 Ur Specific [place] 1.016 Urine Protein <15 mg/dl Urine Glucose (UA) Neg Urine Ketones Neg Urine Blood Lg Urine Nitrite Neg Urine Bilirubin Neg Urine Urobilinogen < 2.0 Ur Leukocyte Esterase Neg Urine WBC (Auto) 1.0 Urine RBC (Auto) 24.0 U Epithel Cells (Auto) 3.0 Urine Bacteria (Auto) 1+ Urine Mucus Few Urine Yeast (Budding) Few Urine HCG, Qual Negative Vital Signs 02/23/21 07:59 Temperature 99.4 F Pulse Rate 90 Respiratory 18 Rate Blood Pressure 103/62 O2 Sat by Pulse 98 Oximetry UA NOTED LABS NOTED CT NOTED PT MEDICATED IN ER FOR PAIN/ NS 1L. K REPLACED PO ON REEXAM PT TAKING PO PT BEING DC HOME WITH DC PLAN OF CARE INCLUDING PCP AND OBGYN FOLLOW UP SHE VERBALIZES UNDERSTANDING OF PLAN OF CARE. - Differential Diagnosis RO DIVERTICULAR DISEASE, APPEND., OVARIAN CYST/MASS Critical care attestation.: If time is entered above; I have spent that time in minutes in the direct care of this critically ill patient, excluding procedure time. ED Disposition Clinical Impression: Abdominal pain, Ovarian cyst Disposition: DC-01 TO HOME OR SELFCARE Is pt being admited?: No Does the pt Need Aspirin: No Condition: Stable Instructions: Ovarian Cyst, [id number], Abdominal Pain (ED) Additional Instructions: MEDICATIONS ORDERED TODAY CONTINUE HOME MEDS FOLLOW UP WITH PCP AND OBGYN FOR ONGOING NEEDS REFERRALS BELOW Prescriptions: Ibuprofen [Motrin] 800 mg PO Q8HR PRN #30 tablet PRN Reason: Pain, Moderate (4-6) Referrals: PRIMARY CARE, [Primary Care Provider] - 3-5 Days ALHAJI DANIELS MD [Staff Physician] - 3-5 Days Time of Disposition: 10:27
[2021-02-23] MEDS ORDERED: SODIUM CHLORIDE 0.9% 1000 ML 1,000 ML IV ONE (09:30)
[2021-02-23] MEDS ORDERED: POTASSIUM CHLORIDE ER 20 MEQ TAB PO ONE (09:30)
[2021-02-23] MEDS ORDERED: HYDROmorphone 1 MG/1 ML INJ IV ONE (09:31)
[2021-02-23] MEDS ORDERED: ONDANSETRON 4 MG/2 ML INJ IV ONE (09:31)
--- NOTE | 2021-02-23 10:23 | Cat Scan Report ---
CT ABDOMEN AND PELVIS WITHOUT CONTRAST HISTORY: LLQ PAIN COMPARISON: 11/05/2020 TECHNIQUE: Axial CT images were obtained through the abdomen and pelvis without IV contrast. Sagittal and coronal reformatted images. All CT scans at this location are performed using CT dose reduction for ALARA by means of automated exposure control. FINDINGS: CT ABDOMEN: Lung Bases: Clear. Liver: No significant abnormality. Biliary: Gallbladder is surgically absent. Spleen: No significant abnormality. Unenlarged. Pancreas: No significant abnormality. Adrenals: No significant abnormality. Kidneys: No significant abnormality. Lymphatics: No lymphadenopathy. Vasculature: No significant abnormality. Bowel/Peritoneum: No significant abnormality. No free air. No fluid collection. Normal appendix. CT PELVIS: : 2 right ovarian cysts are identified measuring 2.6 cm and 1.6 cm. These appear grossly unchanged since the previous exam. The uterus, left adnexa and bladder are unremarkable. Small pelvic ascites i s noted. Osseous Structures: No significant abnormality. Additional Findings: None IMPRESSION: Right ovarian cysts as described. Small pelvic ascites. This appears grossly unchanged since 11/05/20 20 exam. Interval cholecystectomy changes. No acute inflammatory process is appreciated in the left lower quadrant. Signer Name: Tj Ambrose Jr, MD Signed: 02/23/2021 10:18 AM Workstation Name: [id number]
== END 2021-02-23 11:04 | disposition home or self-care (01) ==
LOC: ED 07:42
DX: N83.202 Unspecified ovarian cyst, left side (principal); R10.32 Left lower quadrant pain; F17.200 Nicotine dependence, unspecified, uncomplicated; Z79.899 Other long term (current) drug therapy; Z98.890 Other specified postprocedural states
CPT/HCPCS: 36415; 74176; 80053; 81001; 81025; 83690; 85025; 96361; 96374; 96375; 99284; J1170; J2405; J7030

== ENCOUNTER 2022-04-11 08:50 | Emergency (ER) | payer SELFPAY ==
[2022-04-11 10:58] LABS: Bacteria,Urine 1+ /HPF (Negative); Bilirubin,Urine NEG (Negative); Blood,Urine MOD (Negative); Color,Urine Straw (Yellow); Protein,Urine <15 mg/dL mg/dL (Negative); Urobilinogen,Urine < 2.0 mg/dL (<2.0)
--- NOTE | 2022-04-11 11:18 | Emergency Department Report ---
ED Abdominal Pain HPI - General Chief Complaint: Abdominal Pain Stated Complaint: BACK/STOMACH/LEG PAIN Time Seen by Provider: 04/11/22 11:11 Source: patient Mode of arrival: Ambulatory Limitations: No Limitations - History of Present Illness Initial Comments: 46 Y F with no significant PMH reports abdominal pain since with Nausea, no vomiting , no diarrhea. no blood in stool. No dysuria present. HX of ectopic and gallbladder sx. Patient reports taking motrin for pain pain with no relief. Lower left pelvic/abdominal pain is greatest area of pain. No other acute symptoms reported. Onset/Timin -: days(s) Location: LLQ, suprapubic Radiation: none Severity scale (0 -10): 8 Treatments Prior to Arrival: NSAIDs - Related Data Previous Rx's Medication Instructions Recorded Last Taken Type levoFLOXacin [Levaquin] 750 mg PO QDAY #7 tablet 11/07/20 Unknown Rx traMADoL [Ultram 50 MG tab] 50 mg PO Q6HR PRN #20 tablet 11/07/20 Unknown Rx Ibuprofen [Motrin] 800 mg PO Q8HR PRN #30 tablet 02/23/21 Unknown Rx traMADoL [Ultram 50 MG tab] 50 mg PO Q6HR PRN 3 Days #10 tablet 04/11/22 Unknown Rx Allergies Allergy/AdvReac Type Severity Reaction Status Date / Time No Known Allergies Allergy Verified 04/11/22 10:11 ED Review of Systems ROS: Stated complaint: BACK/STOMACH/LEG PAIN Other details as noted in HPI Constitutional: denies: chills, fever Eyes: denies: eye pain, eye discharge, vision change ENT: denies: ear pain, throat pain Respiratory: denies: cough, shortness of breath, wheezing Cardiovascular: denies: chest pain, palpitations Endocrine: no symptoms reported Gastrointestinal: abdominal pain, nausea. denies: vomiting, diarrhea, constipation, melena, hematochezia Genitourinary: denies: urgency, dysuria, discharge Musculoskeletal: denies: back pain, joint swelling, arthralgia Skin: denies: rash, lesions Neurological: denies: headache, weakness, paresthesias Psychiatric: denies: anxiety, depression Hematological/Lymphatic: denies: easy bleeding, easy bruising ED Past Medical Hx - Past Medical History Previous Medical History?: No Hx Hypertension: No Hx Heart Attack/AMI: No Hx Liver Disease: No (CT findings of fatty infiltration vs early cirrhosis, LFTs/coags normal) Hx Renal Disease: No - Surgical History Additional Surgical History: ectopic - Social History Smoking Status: Current Every Day Smoker Substance Use Type: None - Medications Home Medications: Home Medications Medication Instructions Recorded Confirmed Last Taken Type levoFLOXacin [Levaquin] 750 mg PO QDAY #7 tablet 11/07/20 Unknown Rx traMADoL [Ultram 50 MG tab] 50 mg PO Q6HR PRN #20 tablet 11/07/20 Unknown Rx Ibuprofen [Motrin] 800 mg PO Q8HR PRN #30 tablet 02/23/21 Unknown Rx traMADoL [Ultram 50 MG tab] 50 mg PO Q6HR PRN 3 Days #10 tablet 04/11/22 Unknown Rx ED Physical Exam - General Limitations: No Limitations General appearance: alert, in no apparent distress - Head Head exam: Present: atraumatic, normocephalic - Eye Eye exam: Present: normal appearance - ENT ENT exam: Present: mucous membranes moist - Neck Neck exam: Present: normal inspection - Respiratory Respiratory exam: Present: normal lung sounds bilaterally. Absent: respiratory distress - Cardiovascular Cardiovascular Exam: Present: regular rate, normal rhythm. Absent: systolic murmur, diastolic murmur, rubs, gallop - GI/Abdominal GI/Abdominal exam: Present: soft, tenderness (left lower abdominal - pelvic area ), normal bowel sounds - Extremities Exam Extremities exam: Present: normal inspection - Back Exam Back exam: Present: normal inspection - Neurological Exam Neurological exam: Present: alert, oriented X3 - Psychiatric Psychiatric exam: Present: normal affect, normal mood - Skin Skin exam: Present: warm, dry, intact, normal color. Absent: rash ED Course Vital Signs 04/11/22 10:11 Temperature 98.1 F Pulse Rate 68 Respiratory 18 Rate Blood Pressure 110/67 O2 Sat by Pulse 100 Oximetry ED Medical Decision Making - Lab Data Result diagrams: 04/11/22 12:43 04/11/22 12:43 - Radiology Data Radiology results: report reviewed CT abdomen pelvisshows no acute process noted, a 1.4 cm cyst is located in the left ovary. Abdominal ultrasoundshows a 1.3 cyst to the right ovary, no acute process noted. - Medical Decision Making 46-year-old female 5 days of abdominal pain lower left side with nausea, no vomiting, no diarrhea, no vaginal discharge, no vaginal bleeding, no other acute symptoms reported. On physical exam no acute abdominal signs noted. Labs with no acute process noted. CT abdominal pelvis1.4 cm left ovary cyst noted, no other acute abdominal or pelvic concerns. Abdominal ultrasound1.3 right centimeters ovary cyst noted, no acute pelvic findings noted. Morphine 4 mg IV and Zofran 4 mg IV given for pain and nausea. Patient stable for discharge patient will follow-up with her [facility], for cyst management and further evaluation. Patient agrees with plan of care and verbalizes understanding. Patient will be sent home with oral medications to help with discomfort. Vital Signs 04/11/22 10:11 Temperature 98.1 F Pulse Rate 68 Respiratory 18 Rate Blood Pressure 110/67 O2 Sat by Pulse 100 Oximetry Lab Results 04/11/22 04/11/22 04/11/22 Range/Units 12:43 12:43 Unknown WBC 8.6 (4.5-11.0) K/mm3 RBC 3.99 (3.65-5.03) M/mm3 Hgb 12.0 (10.1-14.3) gm/dl Hct 37.0 (30.3-42.9) % MCV 93 (79-97) fl MCH 30 (28-32) pg MCHC 33 (30-34) % RDW 13.5 (13.2-15.2) % Plt Count 216 (140-440) K/mm3 Lymph % (Auto) 20.2 (13.4-35.0) % Benzie % (Auto) 4.7 (0.0-7.3) % Eos % (Auto) 5.8 H (0.0-4.3) % Baso % (Auto) 1.1 (0.0-1.8) % Lymph # (Auto) 1.7 (1.2-5.4) K/mm3 Benzie # (Auto) 0.4 (0.0-0.8) K/mm3 Eos # (Auto) 0.5 H (0.0-0.4) K/mm3 Baso # (Auto) 0.1 (0.0-0.1) K/mm3 Seg Neutrophils % 68.2 (40.0-70.0) % Seg Neutrophils # 5.9 (1.8-7.7) K/mm3 Sodium 143 (137-145) mmol/L Potassium 3.8 (3.6-5.0) mmol/L Chloride 109.0 H (98-107) mmol/L Carbon Dioxide 25 (22-30) mmol/L Anion Gap 13 mmol/L BUN 8 (7-17) mg/dL Creatinine 0.8 (0.6-1.2) mg/dL Estimated GFR > 60 ml/min BUN/Creatinine Ratio 10 % Glucose 93 (65-100) mg/dL Calcium 8.2 L (8.4-10.2) mg/dL Total Bilirubin < 0.20 (0.1-1.2) mg/dL AST 12 (5-40) units/L ALT 10 (7-56) units/L Alkaline Phosphatase 69 (35-129) units/L Total Protein 5.1 L (6.3-8.2) g/dL Albumin 3.1 L (3.9-5) g/dL Albumin/Globulin Ratio 1.6 % Lipase 21 (13-60) units/L Urine Color Straw (Yellow) Urine Turbidity Clear (Clear) Urine pH 6.0 (5.0-7.0) Ur Specific Rena Lara 1.008 (1.003-1.030) Urine Protein <15 mg/dl (Negative) mg/dL Urine Glucose (UA) Neg (Negative) mg/dL Urine Ketones Neg (Negative) mg/dL Urine Blood Mod (Negative) Urine Nitrite Neg (Negative) Urine Bilirubin Neg (Negative) Urine Urobilinogen < 2.0 (<2.0) mg/dL Ur Leukocyte Esterase Neg (Negative) Urine WBC (Auto) 1.0 (0.0-6.0) /HPF Urine RBC (Auto) 3.0 (0.0-6.0) /HPF U Epithel Cells (Auto) 5.0 (0-13.0) /HPF Urine Bacteria (Auto) 1+ (Negative) /HPF Critical care attestation.: If time is entered above; I have spent that time in minutes in the direct care of this critically ill patient, excluding procedure time. ED Disposition Clinical Impression: Cyst of ovary, left, Cyst of ovary, right Abdominal pain Qualifiers: Abdominal location: left lower quadrant Qualified Code(s): R10.32 - Left lower quadrant pain Disposition: HOME / SELF CARE / HOMELESS Condition: Stable Instructions: Abdominal Pain (ED), Abdominal Pain, Adult Prescriptions: traMADoL [Ultram 50 MG tab] 50 mg PO Q6HR PRN 3 Days #10 tablet PRN Reason: Pain
--- NOTE | 2022-04-11 12:28 | Ultrasound Report ---
ULTRASOUND PELVIS COMPLETE INDICATION / CLINICAL INFORMATION: lower abdominal pain / pelvic. TECHNIQUE: Transabdominal. Duplex Color Doppler used: Yes. COMPARISON: None available FINDINGS: UTERUS: Present. Anteverted. - Appearance (if present): No significant abnormality. - Size in cm (if present): 7 x 5 x 5. - Endometrial Complex (if present): No significant abnormality.. Thickness in cm (if measured) = 0.44 - Mass lesions: None. - Additional findings: None. RIGHT ADNEXA: A 1.3 cm right ovarian cyst is identified. Normal color Doppler blood flow. LEFT ADNEXA: No significant ovarian cyst or mass. Normal color Doppler blood flow. URINARY BLADDER: The bladder is poorly distended but grossly unremarkable. FREE FLUID: There is trace pelvic fluid. ADDITIONAL FINDINGS: None. IMPRESSION: 1.3 cm right ovarian cyst, otherwise, unremarkable exam. Signer Name: Tj Ambrose Jr, MD Signed: 04/11/2022 12:24 PM Workstation Name: [id number]
--- NOTE | 2022-04-11 12:59 | Cat Scan Report ---
CT ABDOMEN AND PELVIS WITHOUT CONTRAST HISTORY: lower abdominal pain / pelvic pain COMPARISON: 02/23/2021 TECHNIQUE: Axial CT images were obtained through the abdomen and pelvis without IV contrast. Sagittal and coronal reformatted images. All CT scans at this location are performed using CT dose reduction for ALARA by means of automated exposure control. FINDINGS: CT ABDOMEN: Lung Bases: Clear. Liver: No significant abnormality. Biliary: Stable cholecystectomy changes. Spleen: No significant abnormality. Unenlarged. Pancreas: No significant abnormality. Adrenals: No significant abnormality. Kidneys: No significant abnormality. Lymphatics: No lymphadenopathy. Vasculature: No significant abnormality. Bowel/Peritoneum: No significant abnormality. No free air. No free fluid. Normal appendix. CT PELVIS: : A 1.4 cm left ovarian cyst is identified. The uterus, right ovary and bladder are unremarkable. Osseous Structures: Moderate to severe degenerative disc disease at L5-S1. No acute bony abnormality or bone lesion. Additional Findings: None IMPRESSION: 1.4 cm left ovarian cyst. No acute inflammatory process is appreciated. Cholecystectomy. Degenerative changes at L5-S1. Signer Name: Tj Ambrose Jr, MD Signed: 04/11/2022 12:55 PM Workstation Name: [id number]
[2022-04-11 13:16] LABS: Basophils # (Auto) 0.1 K/mm3 (0.0-0.1); Basophils % (Auto) 1.1 % (0.0-1.8); Eosinophils # (Auto) 0.5 K/mm3 (0.0-0.4); Eosinophils % (Auto) 5.8 % (0.0-4.3); Lymphocytes # (Auto) 1.7 K/mm3 (1.2-5.4); Lymphocytes % (Auto) 20.2 % (13.4-35.0); Mean Corpuscular HGB Conc 33 % (30-34); Mean Corpuscular Volume 93 fl (79-97); Monocytes # (Auto) 0.4 K/mm3 (0.0-0.8); Monocytes % (Auto) 4.7 % (0.0-7.3); Platelet Count 216 K/mm3 (140-440); Red Blood Count 3.99 M/mm3 (3.65-5.03); Red Cell Distribution Width 13.5 % (13.2-15.2)
[2022-04-11 13:44] LABS: Alanine Aminotransferase 10 units/L (7-56); Albumin 3.1 g/dL (3.9-5); BUN/Creatinine Ratio 10; Blood Urea Nitrogen 8 mg/dL (7-17); Calcium 8.2 mg/dL (8.4-10.2); Hemolysis Index 3
[2022-04-11] MEDS ORDERED: MORPHINE 4 MG/1 ML INJ IV ONE (14:00)
[2022-04-11] MEDS ORDERED: ONDANSETRON 4 MG/2 ML INJ IV ONE (14:00)
[2022-04-11 15:19] VITALS: BP 110/70
== END 2022-04-11 15:18 | disposition home or self-care (01) ==
LOC: ED 08:50
DX: N83.202 Unspecified ovarian cyst, left side (principal); N83.201 Unspecified ovarian cyst, right side; R10.9 Unspecified abdominal pain; F17.200 Nicotine dependence, unspecified, uncomplicated
CPT/HCPCS: 36415; 74176; 76856; 80053; 81001; 83690; 85025; 96374; 96375; 99284; J2270; J2405; 96366